=== PATIENT | male | born 1945 | race Caucasian/White ===

== ENCOUNTER 2021-04-04 15:05 | Inpatient (IN) | payer OTHER ==
[~2021-04-04] VITALS: Ht 188 cm; Wt 168.6 kg
[2021-04-23 14:30] VITALS: BP 137/81
== END 2021-04-23 17:35 | DRG 871 ==
LOC: ED 19:06 → 4NW 20:48 → 3N 04-08 19:52
PROVIDERS: ADMIT Emergency Medicine; ATTEND Internal Medicine
PROC: 0T9B70Z Drainage of Bladder with Drainage Device, Via Natural or Artificial Opening (ICD-10-PCS; principal; 2021-04-06)
PROC: XW033E5 Introduction of Remdesivir Anti-infective into Peripheral Vein, Percutaneous Approach, New Technology Group 5 (ICD-10-PCS; 2021-04-09)
DX: A41.89 Other specified sepsis (principal); G93.41 Metabolic encephalopathy; J12.82 Pneumonia due to coronavirus disease 2019; J96.21 Acute and chronic respiratory failure with hypoxia; N17.0 Acute kidney failure with tubular necrosis; U07.1 COVID-19; A04.72 Enterocolitis due to Clostridium difficile, not specified as recurrent; I50.32 Chronic diastolic (congestive) heart failure; Z68.42 Body mass index [BMI] 45.0-49.9, adult; E46 Unspecified protein-calorie malnutrition; I13.0 Hypertensive heart and chronic kidney disease with heart failure and stage 1 through stage 4 chronic kidney disease, or unspecified chronic kidney disease; J44.0 Chronic obstructive pulmonary disease with (acute) lower respiratory infection; L03.119 Cellulitis of unspecified part of limb; N39.0 Urinary tract infection, site not specified; Z16.23 Resistance to quinolones and fluoroquinolones; Z66 Do not resuscitate; E66.01 Morbid (severe) obesity due to excess calories; B37.9 Candidiasis, unspecified; E03.9 Hypothyroidism, unspecified; E11.22 Type 2 diabetes mellitus with diabetic chronic kidney disease; E78.5 Hyperlipidemia, unspecified; G47.30 Sleep apnea, unspecified; K21.9 Gastro-esophageal reflux disease without esophagitis; R53.81 Other malaise; K59.00 Constipation, unspecified; K80.20 Calculus of gallbladder without cholecystitis without obstruction; N18.30 Chronic kidney disease, stage 3 unspecified; Z51.5 Encounter for palliative care; Z78.9 Other specified health status; Z87.891 Personal history of nicotine dependence; Z88.0 Allergy status to penicillin